=== PATIENT | male | born 1990 | race Caucasian/White ===

== ENCOUNTER 2017-01-28 02:15 | Emergency (ER) | payer OTHER ==
[~2017-01-28] VITALS: Ht 160 cm; Wt 70.0 kg
[2017-01-28 02:49] VITALS: Ht 160 cm; Wt 70.0 kg
[2017-01-28] MEDS ORDERED: RANI150T9 PO (06:55)
[2017-01-28] MEDS ORDERED: OMEP20CA16 PO (06:55)
--- NOTE | 2017-01-28 17:21 | ERD ---
ER Documentation Chief Complaint Chief Complaint C/o abdominal pain with nausea onset 2300hrs HPI 26-year-old female complaining of epigastric abdominal pain. Patient stated that the pain onset shortly after he ate 2 and not hamburgers with hot peppers and went to bed. He woke up with severe epigastric abdominal pain, was told by his insurance to come to ED to be checked. The pain is constant and burning, radiates to his back. It lasted about 5 hours. The pain has since resolved. He had nausea, but no vomiting. Denies fever or chills. Denies diarrhea. Patient has history is at this time the pain on location in the past. ROS All systems reviewed and are negative except as per history of present illness. Medications Home Meds Active Scripts Ranitidine Hcl* (Zantac*) 150 Mg Tablet, 150 MG PO BID Y for EPIGASTRIC PAIN, # 30 TAB Prov:CYNTHIA GOLDSTEIN. HOUSEKEEPING DIRECTOR 01/28/17 Omeprazole* (Omeprazole*) 20 Mg Capsule.dr, 20 MG PO QAM, #14 Prov:CYNTHIA GOLDSTEIN. HOUSEKEEPING DIRECTOR 01/28/17 PMhx/Soc Medical and Surgical Hx: pt denies Medical Hx, pt denies Surgical Hx Hx Alcohol Use: No Hx Substance Use: No Hx Tobacco Use: No Smoking Status: Never smoker Physical Exam Vitals Vital Signs Date Time Temp Pulse Resp B/P Pulse Ox O2 Delivery O2 Flow Rate FiO2 01/28/17 02:49 97.7 109 20 133/91 100 Physical Exam General: Well-developed, well-nourished, conscious and coherent, in no distress Skin: Warm and dry without rash, good texture and turgor Head: Normocephalic without evidence of trauma Eyes: Sclera and conjunctivae normal; pupils equal, round, and reactive to light; extraocular movements are intact Chest: Normal AP diameter. Good expansion without retractions. Nontender. Lungs are clear to auscultate bilaterally with good tidal volume Heart: Regular rate and rhythm. No murmur, rub, or gallops heard Abdomen: Soft and nontender without masses, guarding, or rebound. Bowel sounds are active. No hepatosplenomegaly Extremities: Full range of motion. Good strength bilaterally. No clubbing, cyanosis, or edema. Peripheral pulses are intact. Sensation intact Neuro: Alert and oriented 4, GCS 15. Cranial nerves grossly intact. Motor and sensory exams nonfocal. Moves all extremities. Speech clear. Gait normal Procedures/MDM Well-appearing 26-year-old male present ED with epigastric abdominal pain that lasted about 5 hours. This time, patient notes pain has resolved. Patient is afebrile. No right upper right lower quadrant tenderness on palpation. Low suspicion for acute appendicitis, cholecystitis, pancreatitis or other acute abdomen. I suspect patient's epigastric pain is due to gastric irritation. Patient appears well, stable for discharge and outpatient management. Medical decision making shared with patient and family. Education provided to patient and family. Patient and family expressed understanding of the plan. Medications on discharge: Omeprazole, ranitidine. Follow-up: Primary care provider in 2-3 days or return to ED if worse. Disclaimer: Inadvertent spelling and grammatical errors are likely due to EHR/ dictation software use and do not reflect on the overall quality of patient care. Also, please note that the electronic time recorded on this note does not necessarily reflect the actual time of the patient encounter. Departure Diagnosis: Primary Impression: Epigastric abdominal pain Condition: Stable Patient Instructions: Epigastric Pain (Uncertain Cause) Additional Instructions: Follow up with [facility] in 2-3 days. Go to [facility] if symptoms worse. CYNTHIA GOLDSTEIN NP Jan 28, 2017 17:21
== END 2017-01-28 07:02 | disposition home or self-care (01) ==
LOC: FTE 02:15
DX: R10.13 Epigastric pain (principal)
CPT/HCPCS: 99283